=== PATIENT | female | born 1990 | race Caucasian/White ===

== ENCOUNTER → 2019-07-17 | Outpatient (CLI) | payer OTHER, SELFPAY ==
[2019-07-17 13:23] VITALS: BMI 23.1
[2019-07-21 17:41] LABS: HPV Reflexed? NOT INDICATED
== END | disposition home or self-care (01) ==
LOC: LABSPEC 16:30
PROVIDERS: PCP Family Medicine; Referring Provider Nurse Practitioner Women's Health; Visit Provider Nurse Practitioner Women's Health
DX: Z12.4 Encounter for screening for malignant neoplasm of cervix (principal)
CPT/HCPCS: 88175; G0145

== ENCOUNTER → 2020-05-12 | Outpatient (CLI) | payer OTHER, SELFPAY ==
[2020-05-12 10:26] VITALS: BMI 21.2
[2020-05-12 14:20] LABS: Amphetamine Urine VISTA NEGATIVE (<1000 ng/mL); Barbiturate Urine VISTA NEGATIVE (< 200 ng/mL); Benzodiazepine Urine VISTA NEGATIVE (< 200 ng/mL); Cocaine Urine VISTA NEGATIVE (< 300 ng/mL); Ecstacy Urine VISTA NEGATIVE (< 500 ng/mL); Methadone Urine VISTA NEGATIVE (< 300 ng/mL); PCP Urine VISTA NEGATIVE (< 25 ng/mL); THC Urine VISTA NEGATIVE (< 50 ng/mL); Vista UDS pH Range 6
[2020-05-14 03:06] LABS: Chlamydia By Nucleic Acid AMP Negative (Negative)
[2020-05-14 13:04] LABS: Gonococcus By Nucleic Acid AMP Negative (Negative)
== END | disposition home or self-care (01) ==
LOC: LABSPEC 13:14
PROVIDERS: Visit Provider Obstetrics & Gynecology
DX: Z34.90 Encounter for supervision of normal pregnancy, unspecified, unspecified trimester (principal)
CPT/HCPCS: 80307; 87086; 87088; 87491; 87591

== ENCOUNTER → 2020-05-28 12:12 | Outpatient (CLI) | payer OTHER, SELFPAY ==
[2020-05-12 10:26] VITALS: BMI 21.2
[2020-05-28 12:44] LABS: Absolute Lymphocyte Count 3.39 X10^3/uL (0.83-4.51); Absolute Neutrophil Count 5.7 X10^3/uL (2.0-7.7); Basophil# 0.02 X10^3/uL; Basophil% 0.2 % (0-1); Eosinophil# 0.08 X10^3/uL; Eosinophils% 0.8 % (0-5); Hematocrit 34.4 % (37-47); Hemoglobin 11.4 g/dL (12.0-15.0); Lymphocyte # 3.39 X10^3/ul (4.0); Lymphocyte % 34.9 % (19-41); Mean Corp Hgb Conc 33.1 g/dL (32-36); Mean Corpuscular Hgb 27.9 pg (27.0-32.0); Mean Corpuscular Volume 84.1 fL (81-99); Mean Platelet Vol. 9.1 fl (6.2-12.0); Monocyte# 0.55 X10^3/uL; Monocyte% 5.7 % (0-10); NRBC Flagged by Analyzer 0 % (0-5); Neutrophil # 5.65 X10^3/uL (2.7-7.7); Neutrophil % 58.2 % (47-70); Platelet Count 374 K/mm3 (150-450); RBC Distribution Width CV 13.4 % (11.6-14.6); RBC Distribution Width SD 41.1 fl (35.1-43.9); Red Blood Count 4.09 M/mm3 (4.2-5.4); White Blood Count 9.7 K/mm3 (4.4-11.0)
[2020-05-28 13:23] LABS: NATERA MAILED SPECIMEN
[2020-05-28 14:02] LABS: HIV - WCH Non-Reactive (Nonreactive); Hepatitis B Surface Antigen Non-Reactive (Nonreactive); Hepatitis C Antibody Non-Reactive (Nonreactive); Rubella IgG Equiv (Nonreactive)
[2020-05-29 02:34] LABS: Rapid Plasmin Reagin (RPR) NONREACTIVE (NONREACTIVE)
== END ==
PROVIDERS: PCP Family Medicine; Referring Provider Obstetrics & Gynecology; Visit Provider Obstetrics & Gynecology
DX: Z34.81 Encounter for supervision of other normal pregnancy, first trimester (principal)
CPT/HCPCS: 36415; 85025; 86592; 86703; 86762; 86803; 86850; 86900; 86901; 87340

== ENCOUNTER → 2020-07-07 | Outpatient (CLI) | payer OTHER, SELFPAY ==
[2020-07-07 10:43] VITALS: BMI 22.4
== END | disposition home or self-care (01) ==
LOC: LABSPEC 13:23
PROVIDERS: PCP Family Medicine; Visit Provider Nurse Practitioner Women's Health
DX: R30.0 Dysuria (principal)
CPT/HCPCS: 87086; 87088

== ENCOUNTER → 2020-08-22 | Outpatient (CLI) | payer OTHER, SELFPAY ==
[2020-08-22 15:30] VITALS: BMI 24.2
== END | disposition home or self-care (01) ==
LOC: LABSPEC 16:15
PROVIDERS: PCP Family Medicine; Referring Provider Obstetrics & Gynecology; Visit Provider Obstetrics & Gynecology
DX: R30.9 Painful micturition, unspecified (principal)
CPT/HCPCS: 87086; 87088

== ENCOUNTER → 2020-09-05 14:01 | Outpatient (CLI) | payer OTHER, SELFPAY ==
[2020-08-22 15:30] VITALS: BMI 24.2
[2020-09-05 14:33] LABS: Absolute Neutrophil Count 6.7 X10^3/uL (2.0-7.7); Basophil# 0.03 X10^3/uL; Basophil% 0.3 % (0-1); Eosinophil# 0.03 X10^3/uL; Eosinophils% 0.3 % (0-5); Hematocrit 25.7 % (37-47); Hemoglobin 8.3 g/dL (12.0-15.0); Lymphocyte % 28.3 % (19-41); Mean Corp Hgb Conc 32.3 g/dL (32-36); Mean Corpuscular Hgb 27.4 pg (27.0-32.0); Mean Corpuscular Volume 84.8 fL (81-99); Mean Platelet Vol. 9.3 fl (6.2-12.0); Monocyte# 0.56 X10^3/uL; Monocyte% 5.5 % (0-10); NRBC Flagged by Analyzer 0 % (0-5); Neutrophil # 6.68 X10^3/uL (2.7-7.7); Neutrophil % 65.3 % (47-70); Platelet Count 311 K/mm3 (150-450); RBC Distribution Width CV 12.8 % (11.6-14.6); RBC Distribution Width SD 39.1 fl (35.1-43.9); Red Blood Count 3.03 M/mm3 (4.2-5.4); White Blood Count 10.2 K/mm3 (4.4-11.0)
[2020-09-05 14:41] LABS: Glucose Challenge Gest 1H 50g 135 mg/dL (70-140)
== END ==
PROVIDERS: PCP Family Medicine; Referring Provider Obstetrics & Gynecology; Visit Provider Obstetrics & Gynecology
DX: Z34.90 Encounter for supervision of normal pregnancy, unspecified, unspecified trimester (principal)
CPT/HCPCS: 36415; 82950; 85025

== ENCOUNTER → 2020-10-03 15:20 | Outpatient (CLI) | payer OTHER, SELFPAY ==
[2020-09-05 15:00] VITALS: BMI 24.5
[2020-10-03 17:18] LABS: Absolute Lymphocyte Count 2.93 X10^3/uL (0.83-4.51); Absolute Neutrophil Count 7.4 X10^3/uL (2.0-7.7); Basophil# 0.03 X10^3/uL; Basophil% 0.3 % (0-1); Eosinophil# 0.03 X10^3/uL; Eosinophils% 0.3 % (0-5); Hematocrit 33.1 % (37-47); Hemoglobin 10.2 g/dL (12.0-15.0); Lymphocyte # 2.93 X10^3/ul (0.83-4.51); Lymphocyte % 26.7 % (19-41); Mean Corp Hgb Conc 30.8 g/dL (32-36); Mean Corpuscular Hgb 27.9 pg (27.0-32.0); Mean Corpuscular Volume 90.7 fL (81-99); Mean Platelet Vol. 10.2 fl (6.2-12.0); Monocyte% 5.5 % (0-10); NRBC Flagged by Analyzer 0 % (0-5); Neutrophil # 7.36 X10^3/uL (2.7-7.7); Neutrophil % 66.8 % (47-70); Platelet Count 296 K/mm3 (150-450); RBC Distribution Width CV 18.1 % (11.6-14.6); RBC Distribution Width SD 59.3 fl (35.1-43.9); Red Blood Count 3.65 M/mm3 (4.2-5.4)
== END ==
PROVIDERS: PCP Family Medicine; Referring Provider Obstetrics & Gynecology; Visit Provider Obstetrics & Gynecology
DX: Z78.9 Other specified health status (principal)
CPT/HCPCS: 36415; 85025

== ENCOUNTER → 2020-11-21 15:21 | Outpatient (CLI) | payer OTHER, SELFPAY ==
[2020-11-21 14:34] VITALS: BMI 25.1
[2020-11-21 17:26] LABS: Absolute Lymphocyte Count 2.94 X10^3/uL (0.83-4.51); Absolute Neutrophil Count 5.5 X10^3/uL (2.0-7.7); Basophil# 0.02 X10^3/uL; Basophil% 0.2 % (0-1); Eosinophil# 0.02 X10^3/uL; Eosinophils% 0.2 % (0-5); Hematocrit 38.6 % (37-47); Hemoglobin 12.7 g/dL (12.0-15.0); Lymphocyte # 2.94 X10^3/ul (0.83-4.51); Lymphocyte % 32.2 % (19-41); Mean Corp Hgb Conc 32.9 g/dL (32-36); Mean Corpuscular Hgb 29.9 pg (27.0-32.0); Mean Corpuscular Volume 90.8 fL (81-99); Mean Platelet Vol. 11.4 fl (6.2-12.0); Monocyte# 0.56 X10^3/uL; Monocyte% 6.1 % (0-10); NRBC Flagged by Analyzer 0 % (0-5); Neutrophil # 5.54 X10^3/uL (2.7-7.7); Neutrophil % 60.9 % (47-70); Platelet Count 250 K/mm3 (150-450); RBC Distribution Width CV 15.5 % (11.6-14.6); RBC Distribution Width SD 52.1 fl (35.1-43.9); Red Blood Count 4.25 M/mm3 (4.2-5.4); White Blood Count 9.1 K/mm3 (4.4-11.0)
== END ==
PROVIDERS: PCP Family Medicine; Referring Provider Obstetrics & Gynecology; Visit Provider Obstetrics & Gynecology
DX: O99.013 Anemia complicating pregnancy, third trimester (principal); Z3A.33 33 weeks gestation of pregnancy
CPT/HCPCS: 36415; 85025; 87081

== ENCOUNTER → 2020-12-08 13:25 | Outpatient (CLI) | payer OTHER, SELFPAY ==
[2020-12-05 12:12] VITALS: BMI 25.1
--- NOTE | 2020-12-08 13:26 | US_ITS ---
STUDY: SECOND AND THIRD TRIMESTER OBSTETRICAL ULTRASOUND - LIMITED REASON FOR EXAM: Female, 30 years old routine survey LMP: Unknown. PRIOR ULTRASOUND: None. TECHNIQUE: Transabdominal TECHNICAL QUALITY: Adequate. FINDINGS: There is a single intrauterine fetus. The fetus is in a cephalic presentation. There is demonstrated cardiac activity with a heart rate of 161 bpm. There is a normal amniotic fluid volume. The largest amniotic fluid pocket measures 5.05 cm. The amniotic fluid index (MAC) is 10.57 cm. The placenta is fundal and left lateral There are Grade 3 placental changes. The cervix was not measured BIOMETRY: BPD: 9.45 cm: 38 weeks, 4 days HC: 34.51 cm: 40 weeks, 0 days AC: 34.78 cm: 38 weeks, 5 days FL: 7.36 cm: 37 weeks, 5 days age by current US: 38 weeks, 6 days. THEA by current US: 12/16/2020. Estimated weight: 3533 grams, +/- 516 grams, 67 percentile. Incidental note is made of bilateral hydroceles US/OB Limited With Biometrics IMPRESSION: Single live intrauterine at 38 weeks, 6 days by current ultrasound THEA of 12/16/2020. Heart rate of 161 bpm. Bilateral hydroceles noted Electronically Signed: Howie Walker MD at 10:58 EDT , Service support ,
== END ==
PROVIDERS: Referring Provider Obstetrics & Gynecology; Visit Provider Obstetrics & Gynecology
DX: O36.5930 Maternal care for other known or suspected poor fetal growth, third trimester, not applicable or unspecified (principal); Z3A.37 37 weeks gestation of pregnancy
CPT/HCPCS: 76816

== ENCOUNTER 2020-12-12 13:40 | Outpatient (CLI) | payer OTHER, SELFPAY ==
[2020-12-12] VITALS (8 sets, daily range): BP systolic 108–122; BP diastolic 68–74; PULSE 77–90; TEMP 37.1; BMI 25.1; BMI 26.9
[2020-12-12 14:16] LABS: Hematocrit 36.4 % (37-47); Hemoglobin 12.8 g/dL (12.0-15.0); Mean Corp Hgb Conc 35.2 g/dL (32-36); Mean Corpuscular Hgb 30.8 pg (27.0-32.0); Mean Corpuscular Volume 87.5 fL (81-99); Mean Platelet Vol. 11.5 fl (6.2-12.0); Platelet Count 230 K/mm3 (150-450); RBC Distribution Width CV 14.2 % (11.6-14.6); Red Blood Count 4.16 M/mm3 (4.2-5.4); White Blood Count 9.9 K/mm3 (4.4-11.0)
[2020-12-12 14:23] LABS: Prothrombin Time (Protime)PT. 12.2 SECONDS (11.7-14.9)
[2020-12-12 14:40] LABS: AST(SGOT) 31 U/L (15-37); Alanine Aminotransfer ALT/SGPT 24 U/L (13-56); Creatinine, Serum 0.58 mg/dL (0.55-1.02); EST Glomerular Filtration Rate 130 mL/min (>60); Est Glom Filt Rate - Afr Amer 158 mL/min (>60); Estimated Creatinine Clearance 114.21 ml/min; Uric Acid 5.8 mg/dL (2.6-6.0)
[2020-12-12 15:36] LABS: Protein, Urine (Random) < 6.0 mg/dL (<11.9); Protein:Creat Ratio 155 mg/g CRE (0-200)
--- NOTE | 2020-12-12 16:47 | OB.TRI.PN ---
Progress Notes Date of Service: 12/12/20 Progress Note: Patient presents for triage evaluation secondary to elevated BP in office. Blood pressures normal in triage. PreE labs negative. FHT: Moderate variability reactive no decelerations category I tracing [place]: Irregular Contractions Assessment and plan: Reactive NST, reassuring maternal and status patient discharged to home to follow-up at next scheduled visit. See problem list details for additional plan information. Laboratory Studies: Laboratory Tests 12/12/20 12/12/20 12/12/20 Range/Units 15:00 13:55 13:55 WBC (4.4-11.0) K/mm3 RBC (4.2-5.4) M/mm3 Hgb (12.0-15.0) g/dL Hct (37-47) % MCV (81-99) fL MCH (27.0-32.0) pg MCHC (32-36) g/dL RDW Std Deviation (35.1-43.9) fl RDW Coeff of Mo (11.6-14.6) % Plt Count (150-450) K/mm3 MPV (6.2-12.0) fl PT 12.2 (11.7-14.9) SECONDS INR 1.0 APTT 24.0 L (24.1-36.2) Seconds Creatinine 0.58 (0.55-1.02) mg/dL Estim Creat Clear Calc 114.21 ml/min Est GFR (MDRD) Af Amer 158 (>60) mL/min Est GFR (MDRD) Non-Af 130 (>60) mL/min Uric Acid 5.8 (2.6-6.0) mg/dL AST 31 (15-37) U/L ALT 24 (13-56) U/L U Random Total Protein < 6.0 (<11.9) mg/dL Urine Creatinine 35.50 (NO RANGE EST.) mg/dL Protein/Creatinin Ratio 155 (0-200) mg/g CRE 12/12/20 Range/Units 13:55 WBC 9.9 (4.4-11.0) K/mm3 RBC 4.16 L (4.2-5.4) M/mm3 Hgb 12.8 (12.0-15.0) g/dL Hct 36.4 L (37-47) % MCV 87.5 (81-99) fL MCH 30.8 (27.0-32.0) pg MCHC 35.2 (32-36) g/dL RDW Std Deviation 45.0 H (35.1-43.9) fl RDW Coeff of Mo 14.2 (11.6-14.6) % Plt Count 230 (150-450) K/mm3 MPV 11.5 (6.2-12.0) fl PT (11.7-14.9) SECONDS INR APTT (24.1-36.2) Seconds Creatinine (0.55-1.02) mg/dL Estim Creat Clear Calc ml/min Est GFR (MDRD) Af Amer (>60) mL/min Est GFR (MDRD) Non-Af (>60) mL/min Uric Acid (2.6-6.0) mg/dL AST (15-37) U/L ALT (13-56) U/L U Random Total Protein (<11.9) mg/dL Urine Creatinine (NO RANGE EST.) mg/dL Protein/Creatinin Ratio (0-200) mg/g CRE
== END 2020-12-12 16:00 | disposition home or self-care (01) ==
LOC: WPOUT 13:44 → WP 13:45
PROVIDERS: Referring Provider Obstetrics & Gynecology; Visit Provider Obstetrics & Gynecology
DX: Z34.90 Encounter for supervision of normal pregnancy, unspecified, unspecified trimester (principal)
CPT/HCPCS: 36415; 59025; 59050; 82565; 82570; 84156; 84450; 84460; 84550; 85027; 85610; 85730; 99218; G0378

== ENCOUNTER 2020-12-14 08:35 | Inpatient (IN) | payer OTHER, SELFPAY ==
[2020-11-28 13:58] VITALS: BMI 25.1
[2020-12-12 13:54] VITALS: BMI 26.9
[2020-12-14] VITALS (37 sets, daily range): BP systolic 97–142; BP diastolic 57–94; PULSE 76–111; RESP 18; TEMP 36.7–37.1; O2SAT 97–100; BMI 26.6
[2020-12-14] MEDS: 0.9% Saline Lock 10 ML Syringe IV ×2 (07:29→07:30)
[2020-12-14 07:37] LABS: Absolute Lymphocyte Count 2.77 X10^3/uL (0.83-4.51); Absolute Neutrophil Count 4.9 X10^3/uL (2.0-7.7); Basophil# 0.02 X10^3/uL; Basophil% 0.2 % (0-1); Eosinophil# 0.02 X10^3/uL; Eosinophils% 0.2 % (0-5); Hematocrit 35.2 % (37-47); Hemoglobin 12.1 g/dL (12.0-15.0); Lymphocyte # 2.77 X10^3/ul (0.83-4.51); Mean Corp Hgb Conc 34.4 g/dL (32-36); Mean Corpuscular Hgb 30.3 pg (27.0-32.0); Mean Corpuscular Volume 88.2 fL (81-99); Mean Platelet Vol. 11.5 fl (6.2-12.0); Monocyte# 0.62 X10^3/uL; Monocyte% 7.4 % (0-10); NRBC Flagged by Analyzer 0 % (0-5); Neutrophil # 4.94 X10^3/uL (2.7-7.7); Neutrophil % 58.8 % (47-70); Platelet Count 192 K/mm3 (150-450); RBC Distribution Width CV 13.8 % (11.6-14.6); RBC Distribution Width SD 44.4 fl (35.1-43.9); Red Blood Count 3.99 M/mm3 (4.2-5.4); White Blood Count 8.4 K/mm3 (4.4-11.0)
[2020-12-14 07:46] LABS: International Normalized Ratio 0.9; Partial Thromboplast Time 22.7 Seconds (24.1-36.2); Prothrombin Time (Protime)PT. 11.8 SECONDS (11.7-14.9)
[2020-12-14 07:47] LABS: Fibrinogen 585 mg/dl (203-444)
[2020-12-14] MEDS: Lactated Ringers 1,000 ML 999 ML IV (08:15)
[2020-12-14] MEDS: Lactated Ringers 1,000 ML 50 ML IV (09:36)
--- NOTE | 2020-12-14 11:36 | HP.PCM.OB_ITS ---
HPI - General General Date of Admission: 12/14/20 HPI Narrative NAHUN HAGAN, is a 30 F at 39/3 who presents in active labor Maternal Data Information THEA Calculator Estimated Delivery Date Method Current WG Current Estimate 12/18/20 LMP (Certain) 39w 3d PFSH PFS Medical History (Updated 12/14/20 @ 11:[address] Ni Allen MD) Colitis Home Medications multivitamin no.47-iron fum 27 mg-folate no.1 1 mg-dha 300 mg capsule 1 cap PO DAILY 05/07/20 [History Last Taken 12/13/20] ferrous sulfate 325 mg (65 mg iron) tablet 325 mg PO BID #60 tablet 09/05/20 [Rx Last Taken 12/13/20] Allergy/AdvReac Type Severity Reaction Status Date / Time No Known Allergies Allergy Verified 12/14/20 06:32 Family History Father Heart disease Mother Heart disease Surgical History Hernia Social History number of children: 0 current occupational status: employed current occupation: [employer] Smoking Status: Never smoker alcohol intake: current alcohol intake frequency: holidays/special occasions only substance use type: does not use caffeine: Yes what type of physical activity do you participate in: aerobics and weight training frequency: 5-6 times per week seatbelt use: always do you feel safe at home: Yes additional social history: - [facility] History 1 Elective abortions Hx Para 0 Spontaneous abortions Hx # Term Pregnancies Ectopic pregnancies Hx # Pregnancies Multiple births # of living children Visit Details Expected Delivery Route/Plan Labor Preferences- CB/BF classes: CB classes 11/15 labor support person: JANNETTE labor intervention preferences: open to standard interventions. may be interested in tub in labor pain management options preferred: epidural cut cord/dad catch: Cord - squeamish! : yes PP control planned: OCPs discussed possible routes of delivery and associated risks: discussed possible delivery modalities and possible indications for each including R/B/A of , VAVD, FAVD, and CS. questions answered. special requests: Plans flu vaccine: declined tdap vaccine: given rhogam: na LARC form signed: declined movement and labor precautions reviewed. Problem list reviewed and updated with the most current plan of care details and appropriate orders placed. Relevant counseling for the gestational age provided. Continue routine care and follow up unless otherwise noted in visit notes/problem list details OB Flowsheet Initial Weight: Not Recorded Date -?-?-?-?-?-?-?-?-?-?-?-?- EGA Weight BP Urine Prot -?-?-?-?-?-?-?-?-?-?-?-?- Glucose FHR FuHt Pres Dilation -?-?-?-?-?-?-?-?-?-?-?-?- Effaced St Visit Note 05/12/20 -?-?-?-?-?-?-?-?-?-?-?-?- 8w 4d 116 lb 118/72 -?-?-?-?-?-?-?-?-?-?-?-?- 180 -?-?-?-?-?-?-?-?-?-?-?-?- GP - CRL 21mm co nsistent with LMP. 06/09/20 -?-?-?-?--?-?-?-?-?-?-?-?- 12w 4d 117 lb 8 oz 108/64 Nega tive -?-?-?-?-?-?-?-?-?-?-?-?- Negative 157 -?-?-?-?-?-?-?-?-?-?-?-?- GP - no cramping or bleeding. Nausea improved. Having gender reveal on New Years. 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 GP - no cramping or bleeding . Nausea improved. Having gender reveal on New Years. 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 07/07/20 -?-?-?-?-?-?-?-?-?-?-?-?- 16w 4d 122 lb 6 oz 110/60 Nega tive -?-?-?-?-?-?-?-?-?-?-?-?- Negative 147 -?-?-?-?-?-?-?-?-?-?-?-?- MH-noting lower pelvic pressure with occa dysuria. No VB, LOF. No vaginal irritation. Urine culture pending. Declines AFP 08/08/20 -?-?-?-?-?-?-?-?-?-?-?-?- 21w 1d 128 lb 110/72 Negative -?-?-?-?-?-?-?-?-?-?-?-?- Negative 145 -?-?-?-?-?-?-?-?-?-?-?-?- SM- no vb lof di scussed previa diagnosis 09/05/20 -?-?-?-?-?-?-?-?-?-?-?-?- 25w 1d 134 lb 8 oz 110/60 Nega tive -?-?-?-?-?-?-?-?-?-?-?--?- Negative 145 25 -?-?-?-?-?-?-?-?-?-?-?-?- GP - no LOF, VB, DFM, ctx. Discussed anemia - will repeat CBC at next visit. Will consider venofer if still low. GCT 135 - discussed borderline but passed. 10/03/20 -?-?-?-?-?-?-?-?-?-?-?-?- 29w 1d 137 lb 4 oz 120/84 Nega tive -?-?-?-?-?-?-?-?-?-?-?-?- Negative 155 29 -?-?-?-?-?-?-?-?-?-?-?-?- GP - no LOF, VB, DFM, ctx. Repeat CBC pending. LARC form signed. Previa resolved - awaiting records. 10/17/20 -?-?-?-?-?-?-?-?-?-?-?--?- 31w 1d 138 lb 94/62 Negative -?-?-?-?-?-?-?-?-?-?-?-?- Negative 145 31 -?-?-?-?-?-?-?-?-?-?-?-?- GP - no LOF, VB, dFM, ctx. Hb increased significantly with iron. Previa resolved. CB classes next weekend. Baby shower is tomorrow - first grandchild on both sides. 10/31/20 -?-?-?-?-?-?-?-?-?-?-?-?- 33w 1d 142 lb 110/70 Negative -?-?-?-?-?-?-?-?-?-?-?-?- Negative 145 32 Cephalic -?-?-?-?-?-?-?-?-?-?-?-?- SM- no vb lof go od fm nor egular ctx doing well CB classes rescheduled 11/14/20 -?-?-?-?-?-?-?-?-?-?-?-?- 35w 1d 143 lb 120/62 Negative -?-?-?-?-?-?-?-?-?-?-?-?- Negative 150 35 Cephalic -?-?-?-?-?-?-?-?-?-?-?-?- GP - no LOF, VB, DFM, ctx. CB classes this weekend. 11/21/20 -?-?-?-?-?-?-?-?-?-?-?-?- 36w 1d 143 lb 102/80 Negative -?-?-?--?-?-?-?-?-?-?-?-?- Negative 150 36 Cephalic 2 -?-?-?-?-?-?-?-?-?-?-?-?- 60 -2 GP - no LO F, VB, DFM, ctx. GBS today. Discussed labor preferences and routes of delivery. 11/28/20 -?-?-?-?-?-?-?-?-?-?-?-?- 37w 1d 145 lb 116/86 Negative -?-?-?-?-?-?-?-?-?-?-?-?- Negative 160 36 Cephalic 2 -?-?-?-?-?-?-?-?--?-?-?-?- 60 -1 Sm- no vb lof good fm no reuglar ctx 12/05/20 -?-?-?-?-?-?-?-?-?-?-?-?- 38w 1d 145 lb 8 oz 116/70 Nega tive -?-?-?-?-?-?-?-?-?-?-?-?- Negative 155 35 Cephalic 2 -?-?-?-?-?-?-?-?-?-?-?-?- SM- no vb lof go od fm no regular ctx SM- no vb lof good fm no reg ular ctx needs growth US, bedside MAC WNL 12/12/20 -?-?-?-?-?-?-?-?-?-?-?-?- 39w 1d 147 lb 8 oz 124/96 Nega tive -?-?-?-?-?-?-?-?-?-?-?-?- Negative 155 38 Cephalic 3 -?-?-?-?-?-?-?-?--?-?-?-?- 70 -1 GP - no LO F, VB, dFM, regular ctx. Initial BP elevated GP - no LOF, VB, dFM, regula r ctx. BPs elevated - sent to triage for monitoring. 12/14/20 -?-?-?--?-?-?-?-?-?-?-?-?- 39w 3d 146 lb 142/92 119/79 107/63 117/67 -?-?-?-?-?-?-?-?-?-?-?-?- -?-?-?-?-?-?-?-?-?-?-?-?- ROS Eyes Eyes: Reports systems reviewed and no addt'l complaints, except as documented ENT HEENT: Reports systems reviewed and no addt'l complaints, except as documented Cardiovascular Cardiovascular: Reports systems reviewed and no addt'l complaints, except as documented Respiratory/Chest Respiratory/Chest: Reports systems reviewed and no addt'l complaints, except as documented Gastrointestinal Gastrointestinal: Reports systems reviewed and no addt'l complaints, except as documented Genitourinary Genitourinary: Reports systems reviewed and no addt'l complaints, except as documented Musculoskeletal Musculoskeletal: Reports systems reviewed and no addt'l complaints, except as documented Integumentary Integumentary: Reports systems reviewed and no addt'l complaints, except as documented Neurologic Neurologic: Reports systems reviewed and no addt'l complaints, except as documented Psychiatric Psychiatric: Reports systems reviewed and no addt'l complaints, except as documented Endocrine Endocrinology: Reports systems reviewed and no addt'l complaints, except as documented Hematologic/Lymphatic Hematologic/Lymphatic: Reports systems reviewed and no addt'l complaints, except as documented Allergic/Immunologic Allergic/Immunologic: Reports systems reviewed and no addt'l complaints, except as documented Vital Signs Vital Signs Vital Signs: 12/14/20 06:15 12/14/20 06:16 12/14/20 06:31 Pulse Rate 91 85 Blood Pressure 142/92 H 119/79 BP Systolic 142 119 BP Diastolic 92 79 Pulse Ox 99 12/14/20 09:38 12/14/20 11:24 Pulse Rate 85 80 Blood Pressure 107/63 117/67 BP Systolic 107 117 BP Diastolic 63 67 Pulse Ox Weight Weight: 146 lb Body Mass Index (BMI) 26.6 Physical Exam Const alert, oriented x3, no apparent distress, average body habitus, healthy appearing and well nourished HEENT normocephalic and moist oral mucous membranes Head and Scalp: atraumatic Eyes PERRL and EOMs intact bilaterally Neck full ROM Resp normal respiratory effort, no retractions and no use of accessory muscles Cardio regular rate and regular rhythm GI soft to palpation, non-tender and non-distended Extremity normal to inspection and full ROM Skin no rashes or lesions noted Neuro no focal motor deficits and no sensory deficits noted Psych mental status grossly normal, affect normal, speech normal and activity/motor behavior normal Labs Labs Labs: Blood Type O POSITIVE Antibody Screen NEGATIVE Hct 35.2 % (37-47) L Hgb 12.1 g/dL (12.0-15.0) Obstetrics US Rubella IgG Antibody Equiv (Nonreactive) Hep Bs Antigen Non-Reactive (Nonreactive) Neisseria gonorrhoeae DNA (JONNA) Negative (Negative) HIV 1&2 Antibody Non-Reactive (Nonreactive) Glucose 1 Hr 50 gm 135 mg/dL (70-140) Assessment & Plan (1) Active labor at term: PLAN: Patient presents IAL, plan expectant management for , pitocin/AROM PRN if needed. Pain management: plans epidural. GBS negative. Management of any complications: none I have reviewed the [facility] and made any clinically relevant updates. (2) Uterine size-date discrepancy, third trimester: COMMENT: Normal 12/09 (3) Not immune to rubella: COMMENT: Eqivocal. Recommend MMR . (4) Supervision of normal : QUALIFIERS: Normal : normal first Trimester: third trimester Qualified Code(s): Z34.03 - Encounter for supervision of normal first , third trimester COMMENT: PRR THEA 12/18/2020 patric Ly Spouse: CJ (5) : QUALIFIERS: Weeks of gestation: 39 weeks Qualified Code(s): Z3A.39 - 39 weeks gestation of COMMENT: low risk NIPT and nl carrier. afp declined. anatomy reviewed. neg. GBS (6) Colitis: COMMENT: Ulcerative colitis. Dx: 07/2016 patient self treats. Flair in 1st trimester. Not on meds outside of .
[2020-12-14] MEDS: fentaNYL-bupivacaine (epidural) 100 ML BAG EPIDURAL (12:19)
[2020-12-14] MEDS: Lactated Ringers 1,000 ML 200 ML IV (16:27)
[2020-12-14] MEDS: Oxytocin 30 units/NS 500 ml 30 UNITS/500 ML IV.SOLN 334 UNITS IV (17:45)
[2020-12-14] MEDS: Methylergonovine 0.2 MG/ML Ampul IM (18:05)
--- NOTE | 2020-12-14 18:09 | OP.PCM_ITS ---
Assessment & Plan (1) Active labor at term: (2) Uterine size-date discrepancy, third trimester: COMMENT: Normal 12/09 (3) Not immune to rubella: COMMENT: Eqivocal. Recommend MMR . (4) Supervision of normal : QUALIFIERS: Normal : normal first Trimester: third trimester Qualified Code(s): Z34.03 - Encounter for supervision of normal first , third trimester COMMENT: PRR THEA 12/18/2020 patric Ly Spouse: JANNETTE (5) : QUALIFIERS: Weeks of gestation: 39 weeks Qualified Code(s): Z3A.39 - 39 weeks gestation of COMMENT: low risk NIPT and nl carrier. afp declined. anatomy reviewed. neg. GBS (6) Colitis: COMMENT: Ulcerative colitis. Dx: 07/2016 patient self treats. Flair in 1st trimester. Not on meds outside of . (7) Spontaneous vaginal delivery: Maternal Data Information THEA Calculator Estimated Delivery Date Method Current WG Current Estimate 12/18/20 LMP (Certain) 39w 3d Vaginal Delivery Maternal Presentation Maternal Presentation: Active Labor Maternal Presentation: 30-year-old G1, P0 at 39 weeks gestation admitted in active labor. Patient augmented with artificial rupture of membranes. Type of Induction: Amniotomy Operative Information Date of Procedure: 12/14/20 Pre-Operative Diagnosis: Term , active labor Post-Operative Diagnosis: Same Surgery / Procedure Performed: Spontaneous Vaginal Delivery Type of Anesthesia: Epidural Drain: Alfred to straight drain Estimated Blood Loss: 300 Findings Description of Procedure: Patient began pushing and delivered the head in the WILLIS presentation. The head was delivered atraumatically and no nuchal cord was noted. The anterior and posterior shoulders delivered without complication followed by the rest of the and the infant was placed on the maternal abdomen. Delayed cord clamping was employed for approximately 60 seconds. Cord was clamped and cut and gentle traction was applied to the cord and the placenta delivered spontaneously immediately following it was noted to be intact with three-vessel cord. The perineum and vagina were inspected and a midline second- degree perineal laceration was noted and repaired in the standard fashion using 3-0 Vicryl rapide suture. EBL was 300 cc. Patient and infant tolerated delivery well. Presentation: Vertex and WILLIS Amniotic Membrane Rupture Type: Artificial Amniotic Fluid Description: Clear Placental Delivery Description: Spontaneous Placenta Disposition: [facility] Cord Vessel Description: 3 Vessels Cord Entanglement: None Infant A Gender: Male Delayed Cord Clamping: Yes Post Vaginal Delivery Medications Given After Delivery: IV Pitocin and IM Methergin Episiotomy Description: None Laceration: Midline, Perineal Extension/lac and 2nd degree Complication Complications: None Procedures Urinary/Genital [id number]: [id number] [facility]aginal Delivery [facility]
--- NOTE | 2020-12-14 18:15 | PCM.DC ---
Discharge Instructions Diet Discharge Diet: No restrictions Activity Discharge Activity: Return to Normal Activity, May Not Drive (while taking narcotic pain medications.) and May Shower May resume sexual activity in: 4-6 weeks Dressing / Incision Call your doctor if your incision/area has: Continuous Slow Oozing, Sudden Increased Bleeding, Increased Pain/ Swelling, Increased Redness and Foul Smelling Discharge Follow Up Care When: Call to make an appointment with your doctor in 6 weeks. If you had elevated Blood Pressure or 4th degree laceration you will need to be seen in 2 weeks. Test Results: Test results from this visit will be discussed in further detail at your follow-up appointment, if applicable. Discharge Plan Admission Admit Date/Time: 12/14/20 08:35 Attending Provider: Ni Allen Primary Care Provider: Care Physician,No Primary Instructions Patient Instructions: After a Vaginal Discharge Orders/Prescriptions Prescriptions: New ibuprofen 800 mg tablet 800 mg PO Q8H PRN (Reason: pain) Qty: 30 RF: 1 Continued PNV-DHA 27 mg iron-1 mg -300 mg capsule 1 cap PO DAILY RF: 0 ferrous sulfate 325 mg (65 mg iron) tablet 325 mg PO BID Qty: 60 RF: 5 Referrals / Follow Up: Care Physician,No Primary [Primary Care Provider] -
[2020-12-14] MEDS: Ibuprofen 600 MG Tablet PO (21:23)
[2020-12-14] MEDS: Acetaminophen 500 MG Tablet 1000 MG PO (23:53)
[2020-12-15 04:00] VITALS: BP 115/78; PULSE 78; RESP 18; TEMP 36.7
[2020-12-15] MEDS: Ibuprofen 600 MG Tablet PO ×2 (04:36→12:05)
[2020-12-15 07:15] VITALS: TEMP 36.4
[2020-12-15] MEDS: Benzocaine/Lanolin/Aloe Vera 1 SPRAY EACH TOPICAL (07:48)
[2020-12-15] MEDS: Acetaminophen 500 MG Tablet 1000 MG PO (07:49)
[2020-12-15] MEDS: Senna/Docusate Sodium 1 Tablet PO (07:50)
[2020-12-15] MEDS: Ferrous Sulfate 325 MG Tablet PO (07:50)
--- NOTE | 2020-12-15 07:56 | PCM.PN.OB ---
Subjective Subjective Patient doing well without complaints. Tolerating PO. Ambulating and voiding without difficulty. Breast feeding well. Denies chest pain, shortness of breath, calf pain/swelling, fevers, chills, lightheadedness. Objective Data Objective Data Vital Signs: Vital Signs Temp Pulse Resp BP Pulse Ox 97.6 F L 78 18 115/78 97 12/15/20 07:15 12/15/20 04:00 12/15/20 04:00 12/15/20 04:00 12/14/20 19:43 Oxygen Delivery Method Room Air Weight: 146 lb Body Mass Index (BMI) 26.6 Intake & Output: Intake and Output for Last 24 Hours 12/13/20 12/14/20 12/15/20 23:59 23:59 23:59 Intake Total 3600.0 / 3600.0 Output Total 1800 / 1800 Balance 1800.0 / 1800.0 Lab / Micro Data Result Diagrams: 12/14/20 07:20 Labs: Laboratory Results - last 24 hr 12/14/20 07:20 Blood Type O POSITIVE Antibody Screen NEGATIVE Micro: Microbiology 12/14/20 09:20 Mucosa - Nose SARS-CoV-2 Antigen (Rapid) - Final ROS Constitutional Constitutional: Denies fever(s) Cardiovascular Cardiovascular: Denies chest pain, dyspnea or lightheadedness Gastrointestinal Gastrointestinal: Reports abdominal pain; Denies constipation or diarrhea Neurologic Neurologic: Denies dizziness or headache(s) Physical Exam Const alert, oriented x3, no apparent distress, average body habitus, healthy appearing and well nourished HEENT normocephalic Head and Scalp: atraumatic Eyes PERRL and EOMs intact bilaterally Neck full ROM Lymph Lymphatic: no lymphadenopathy noted Resp normal respiratory effort, no retractions and no use of accessory muscles Cardio regular rate GI soft to palpation, non-tender and non-distended Palpation: other Other Details: fundus firm Extremity normal to inspection and no clubbing, cyanosis or edema Skin no rashes or lesions noted Neuro no focal motor deficits and no sensory deficits noted Psych mental status grossly normal, affect normal and speech normal Assessment & Plan (1) Spontaneous vaginal delivery: PLAN: s/p PPD # 1 1. routine post delivery care 2. breast feeding- support given 3. rh positive 4. rubella non-immune
[2020-12-15 09:40] VITALS: BP 117/74; PULSE 88; RESP 18; TEMP 36.6
[2020-12-15 12:40] VITALS: BP 95/65; PULSE 89; RESP 18; TEMP 36.9
[2020-12-15 16:30] VITALS: BP 128/78; PULSE 109; RESP 18; TEMP 36.8
== END 2020-12-15 19:07 | disposition home or self-care (01) | DRG 807 ==
LOC: WPOUT 08:43 → WP 08:43
PROVIDERS: Admitting Provider Obstetrics & Gynecology; Visit Provider Obstetrics & Gynecology
DX: O70.1 Second degree perineal laceration during delivery (principal); Z37.0 Single live birth; Z3A.39 39 weeks gestation of pregnancy
CPT/HCPCS: 59025; 59050; 85025; 85384; 85610; 85730; 86850; 86900; 86901; 87426; 99218; J7120; A4216; G0378

== ENCOUNTER → 2022-02-16 | Outpatient (CLI) | payer OTHER, SELFPAY ==
[2022-02-16 15:37] LABS: Absolute Lymphocyte Count 2.51 X10^3/uL (0.83-4.51); Absolute Neutrophil Count 3.1 X10^3/uL (2.0-7.7); Basophil# 0.01 X10^3/uL; Basophil% 0.2 % (0-1); Eosinophil# 0.06 X10^3/uL; Hematocrit 34.8 % (37-47); Hemoglobin 11.7 g/dL (12.0-15.0); Lymphocyte # 2.51 X10^3/ul (0.83-4.51); Lymphocyte % 40.5 % (19-41); Mean Corp Hgb Conc 33.6 g/dL (32-36); Mean Corpuscular Hgb 30.4 pg (27.0-32.0); Mean Corpuscular Volume 90.4 fL (81-99); Mean Platelet Vol. 9.5 fl (6.2-12.0); Monocyte% 8.1 % (0-10); NRBC Flagged by Analyzer 0 % (0-5); Platelet Count 264 K/mm3 (150-450); RBC Distribution Width CV 12.1 % (11.6-14.6); RBC Distribution Width SD 39.7 fl (35.1-43.9); Red Blood Count 3.85 M/mm3 (4.2-5.4); White Blood Count 6.2 K/mm3 (4.4-11.0)
[2022-02-16 16:07] LABS: T4 Free Direct 0.87 ng/dL (0.76-1.46); Thyroid Stim Hormone (TSH) 1.83 uIU/mL (0.358-3.74)
[2022-02-18 17:32] LABS: Thyroid Peroxidase AB 12 IU/mL (0-34)
== END | disposition home or self-care (01) ==
LOC: PAVLAB 15:07
PROVIDERS: Referring Provider Nurse Practitioner Women's Health; Visit Provider Nurse Practitioner Women's Health
DX: R53.83 Other fatigue (principal); Z13.29 Encounter for screening for other suspected endocrine disorder
CPT/HCPCS: 36415; 84439; 84443; 85025; 86376

== ENCOUNTER → 2022-06-09 | Outpatient (CLI) | payer OTHER, SELFPAY ==
[2022-06-09 08:28] LABS: Absolute Lymphocyte Count 2.38 X10^3/uL (0.83-4.51); Absolute Neutrophil Count 2.1 X10^3/uL (2.0-7.7); Basophil# 0.02 X10^3/uL; Basophil% 0.4 % (0-1); Eosinophil# 0.05 X10^3/uL; Hematocrit 36.9 % (37-47); Hemoglobin 12.3 g/dL (12.0-15.0); Lymphocyte # 2.38 X10^3/ul (0.83-4.51); Mean Corp Hgb Conc 33.3 g/dL (32-36); Mean Corpuscular Hgb 30.2 pg (27.0-32.0); Mean Corpuscular Volume 90.7 fL (81-99); Mean Platelet Vol. 9.3 fl (6.2-12.0); Monocyte# 0.46 X10^3/uL; Monocyte% 9.1 % (0-10); NRBC Flagged by Analyzer 0 % (0-5); Neutrophil # 2.14 X10^3/uL (2.7-7.7); Neutrophil % 42.3 % (47-70); Platelet Count 322 K/mm3 (150-450); RBC Distribution Width SD 39.7 fl (35.1-43.9); Red Blood Count 4.07 M/mm3 (4.2-5.4); White Blood Count 5.1 K/mm3 (4.4-11.0)
[2022-06-09 09:15] LABS: ALB/GLOB Ratio 1.1 RATIO (0.9-2.4); AST(SGOT) 36 U/L (15-37); Alanine Aminotransfer ALT/SGPT 70 U/L (13-56); Albumin, Serum 3.9 g/dL (3.2-5.0); Alkaline Phosphatase 96 U/L (45-117); Anion Gap 6 (5-15); BUN 11 mg/dL (7-18); BUN/Creat Ratio 16.9 RATIO (10-20); CRP < 2.90 mg/L (0.0-3.0); Calcium,Total 8.7 mg/dL (8.5-10.1); Chloride 106 mmol/L (98-107); Creatinine, Serum 0.65 mg/dL (0.55-1.02); EST Glomerular Filtration Rate 113 mL/min (>60); Est Glom Filt Rate - Afr Amer 137 mL/min (>60); Globulin 3.6 g/dL (2.2-4.2); Glucose 73 mg/dL (74-106); Potassium 3.8 mmol/L (3.5-5.1); Protein, Total 7.5 g/dL (6.4-8.2); Sodium Level 138 mmol/L (136-145)
== END | disposition home or self-care (01) ==
LOC: PAVLAB 08:10
DX: K62.5 Hemorrhage of anus and rectum (principal); K51.00 Ulcerative (chronic) pancolitis without complications; K60.0 Acute anal fissure
CPT/HCPCS: 36415; 80053; 85025; 86140

== ENCOUNTER → 2022-08-10 | Outpatient (CLI) | payer OTHER, SELFPAY ==
[2022-08-10 11:52] LABS: hCG Titer Quant., Serum 11 mIU/mL (1-3)
== END | disposition home or self-care (01) ==
LOC: PAVLAB 10:31
PROVIDERS: Referring Provider Obstetrics & Gynecology; Visit Provider Obstetrics & Gynecology
DX: N91.2 Amenorrhea, unspecified (principal)
CPT/HCPCS: 36415; 84702

== ENCOUNTER → 2022-08-12 | Outpatient (CLI) | payer OTHER, SELFPAY ==
[2022-08-12 11:42] LABS: hCG Titer Quant., Serum 4 mIU/mL (1-3)
== END | disposition home or self-care (01) ==
LOC: PAVLAB 10:42
PROVIDERS: Referring Provider Obstetrics & Gynecology; Visit Provider Obstetrics & Gynecology
DX: N91.2 Amenorrhea, unspecified (principal)
CPT/HCPCS: 36415; 84702

== ENCOUNTER → 2022-10-11 | Outpatient (CLI) | payer OTHER, SELFPAY ==
[2022-10-14 04:07] LABS: Chlamydia By Nucleic Acid AMP Negative (Negative); Gonococcus By Nucleic Acid AMP Negative (Negative)
[2022-10-18 20:07] LABS: HPV APTIMA, High Risk Negative (Negative)
[2022-10-18 21:15] LABS: HPV Reflexed? YES, CHARGE PATIENT
== END | disposition home or self-care (01) ==
PROVIDERS: Visit Provider Obstetrics & Gynecology
DX: O09.90 Supervision of high risk pregnancy, unspecified, unspecified trimester (principal)
CPT/HCPCS: 87086; 87491; 87591; 87624; 88175; G0145

== ENCOUNTER → 2022-10-29 | Outpatient (CLI) | payer OTHER, SELFPAY ==
[2022-10-29 09:29] LABS: Absolute Lymphocyte Count 2.25 X10^3/uL (0.83-4.51); Absolute Neutrophil Count 3.3 X10^3/uL (2.0-7.7); Basophil# 0.03 X10^3/uL; Basophil% 0.5 % (0-1); Eosinophil# 0.04 X10^3/uL; Eosinophils% 0.7 % (0-5); Hematocrit 36.6 % (37-47); Hemoglobin 12.6 g/dL (12.0-15.0); Lymphocyte # 2.25 X10^3/ul (0.83-4.51); Mean Corp Hgb Conc 34.4 g/dL (32-36); Mean Corpuscular Hgb 31.1 pg (27.0-32.0); Mean Corpuscular Volume 90.4 fL (81-99); Mean Platelet Vol. 9.8 fl (6.2-12.0); Monocyte# 0.41 X10^3/uL; Monocyte% 6.7 % (0-10); NRBC Flagged by Analyzer 0 % (0-5); Neutrophil # 3.34 X10^3/uL (2.7-7.7); Neutrophil % 54.9 % (47-70); Platelet Count 278 K/mm3 (150-450); RBC Distribution Width CV 12.2 % (11.6-14.6); Red Blood Count 4.05 M/mm3 (4.2-5.4); White Blood Count 6.1 K/mm3 (4.4-11.0)
[2022-10-29 10:00] LABS: NATERA MAILED SPECIMEN
[2022-10-29 10:17] LABS: Ferritin 20 ng/mL (8-252); Iron 127 ug/dL (50-170); Iron Binding Capacity,Total 403 ug/dL (250-450); PERCENT IRON SATURATION 31.5 % (15.0-55.0)
[2022-10-29 10:57] LABS: HIV - WCH Non-Reactive (Nonreactive); Hepatitis B Surface Antigen Non-Reactive (Nonreactive); Hepatitis C Antibody Non-Reactive (Nonreactive); Rubella IgG Reactive (Nonreactive); Syphilis Antibodies Non-reactive; Vitamin B12 828 pg/mL (211-911)
== END | disposition home or self-care (01) ==
LOC: PAVLAB 08:55
PROVIDERS: Referring Provider Obstetrics & Gynecology; Visit Provider Obstetrics & Gynecology
DX: O09.90 Supervision of high risk pregnancy, unspecified, unspecified trimester (principal); Z3A.00 Weeks of gestation of pregnancy not specified
CPT/HCPCS: 36415; 82607; 82728; 83540; 83550; 85025; 86703; 86762; 86780; 86803; 86850; 86900; 86901; 87340

== ENCOUNTER → 2023-02-11 | Outpatient (CLI) | payer OTHER, SELFPAY ==
[2023-02-11 13:35] LABS: Absolute Lymphocyte Count 1.92 X10^3/uL (0.83-4.51); Basophil# 0.02 X10^3/uL; Basophil% 0.2 % (0-1); Eosinophil# 0.03 X10^3/uL; Eosinophils% 0.4 % (0-5); Hematocrit 29.2 % (37-47); Hemoglobin 9.8 g/dL (12.0-15.0); Lymphocyte # 1.92 X10^3/ul (0.83-4.51); Lymphocyte % 22.7 % (19-41); Mean Corp Hgb Conc 33.6 g/dL (32-36); Mean Corpuscular Hgb 30.8 pg (27.0-32.0); Mean Corpuscular Volume 91.8 fL (81-99); Mean Platelet Vol. 9.2 fl (6.2-12.0); Monocyte# 0.43 X10^3/uL; Monocyte% 5.1 % (0-10); NRBC Flagged by Analyzer 0 % (0-5); Neutrophil # 6.04 X10^3/uL (2.7-7.7); Neutrophil % 71.2 % (47-70); Platelet Count 262 K/mm3 (150-450); RBC Distribution Width SD 40.7 fl (35.1-43.9); Red Blood Count 3.18 M/mm3 (4.2-5.4); White Blood Count 8.5 K/mm3 (4.4-11.0)
[2023-02-11 13:52] LABS: Glucose Challenge Gest 1H 50g 106 mg/dL (70-140)
[2023-02-11 14:26] LABS: HIV - WCH Non-Reactive (Nonreactive); Syphilis Antibodies Non-reactive
== END | disposition home or self-care (01) ==
LOC: LAB 12:55
PROVIDERS: Referring Provider Obstetrics & Gynecology; Visit Provider Obstetrics & Gynecology
DX: O09.90 Supervision of high risk pregnancy, unspecified, unspecified trimester (principal); Z3A.00 Weeks of gestation of pregnancy not specified
CPT/HCPCS: 36415; 82950; 85025; 86703; 86780

== ENCOUNTER → 2023-03-21 | Outpatient (CLI) | payer OTHER, SELFPAY ==
--- NOTE | 2023-03-21 08:26 | US_ITS ---
STUDY: SECOND AND THIRD TRIMESTER OBSTETRICAL ULTRASOUND - LIMITED REASON FOR EXAM: Female, 32 years old growth LMP: August 10, 2022. PRIOR ULTRASOUND: None. TECHNIQUE: Transabdominal TECHNICAL QUALITY: Adequate. FINDINGS: There is a single intrauterine fetus. The fetus is in a cephalic presentation. There is demonstrated cardiac activity with a heart rate of 136 bpm. There is a normal amniotic fluid volume. The largest amniotic fluid pocket measures 4.7 cm. The amniotic fluid index (MAC) is 14 cm. The placenta is anterior in location and is not low lying. There are Grade 1 placental changes. The cervix measures 4.7 cm in length. BIOMETRY: BPD: 8.49 cm: 34 weeks, 1 days HC: 31.05 cm: 34 weeks, 5 days AC: 29.05 cm: 33 weeks, 0 days FL: 6.04 cm: 31 weeks, 3 days Age by LMP: 31 weeks, 6 days. THEA by LMP: May 17, 2023. age by current US: 32 weeks, 4 days. THEA by current US: May 03, 2023. Estimated weight: 2062 grams, +/- 309 grams, 70.5 percentile. US/OB Limited With Biometrics IMPRESSION: Single live uterine gestation with a mean gestational age of 32 weeks and 4 days. Electronically Signed: Wiley Scott MD at 9:39 EDT ,
== END | disposition home or self-care (01) ==
LOC: US 08:26
PROVIDERS: Referring Provider Obstetrics & Gynecology; Visit Provider Obstetrics & Gynecology
DX: O98.513 Other viral diseases complicating pregnancy, third trimester (principal); U07.1 COVID-19; Z3A.00 Weeks of gestation of pregnancy not specified
CPT/HCPCS: 76816

== ENCOUNTER → 2023-04-20 | Outpatient (CLI) | payer OTHER, SELFPAY ==
--- NOTE | 2023-04-20 09:27 | US_ITS ---
STUDY: SECOND AND THIRD TRIMESTER OBSTETRICAL ULTRASOUND - LIMITED REASON FOR EXAM: Female, 33 years old growth LMP: August 10, 2022. PRIOR ULTRASOUND: Comparison is made with prior study March 21, 2023. TECHNIQUE: Transabdominal TECHNICAL QUALITY: Adequate. FINDINGS: There is a single intrauterine fetus. The fetus is in a cephalic presentation. There is demonstrated cardiac activity with a heart rate of 130 bpm. There is a normal amniotic fluid volume. The largest amniotic fluid pocket measures 4.0 cm. The amniotic fluid index (MAC) is 14.6 cm. The placenta is anterior in location and is not low lying. There are Grade 1 placental changes. The cervix measures 4.5 cm in length. BIOMETRY: BPD: 9.2 cm: 37 weeks, 2 days HC: 32.9 cm: 37 weeks, 3 days AC: 32.5 cm: 36 weeks, 3 days FL: 7.1 cm: 36 weeks, 1 days Age by LMP: 36 weeks, 1 days. THEA by LMP: May 17, 2023. age by prior US: 38 weeks, 0 days. THEA by prior US: May 03, 2023. age by current US: 37 weeks, 0 days. THEA by current US: May 11, 2023. Estimated weight: 2997 grams, +/- 450 grams, 66 percentile. US/OB Limited With Biometrics IMPRESSION: Single live uterine gestation with mean gestational age of 38 weeks. The measurements obtained today fall within the normal expected range. Electronically Signed: Wiley Scott MD at 15:00 EDT ,
[2023-04-20 13:50] LABS: Group B Strep DNA By PCR Negative (Negative); Internal Control PASS; Probe Check PASS; Specimen Processing Control PASS
== END | disposition home or self-care (01) ==
PROVIDERS: Registered Nurse; Referring Provider Obstetrics & Gynecology; Visit Provider Obstetrics & Gynecology
DX: Z34.90 Encounter for supervision of normal pregnancy, unspecified, unspecified trimester (principal); Z3A.00 Weeks of gestation of pregnancy not specified
CPT/HCPCS: 76816; 87081; 87653

== ENCOUNTER 2023-05-13 09:25 | Inpatient (IN) | payer OTHER, SELFPAY ==
[2023-05-13] VITALS (56 sets, daily range): BP systolic 99–127; BP diastolic 58–82; PULSE 78–113; RESP 16; TEMP 36.8–37.6; O2SAT 83–100; BMI 26.2
--- NOTE | 2023-05-13 09:13 | HP.PCM.OB_ITS ---
HPI - General HPI Narrative NAHUN HAGAN, is a 33 F who presents IAL regular ctx 4-5 cm dilated no vb lof admits good fm Maternal Data Information THEA Calculator Estimated Delivery Date Method Current WG Current Estimate 05/17/23 LMP (Certain) 39w 3d PFSH PFSH Medical History Colitis COVID-19 affecting in third trimester Fatigue Not immune to rubella Home Medications multivitamin no.47-iron fum 27 mg-folate no.1 1 mg-dha 300 mg capsule (PNV-DHA) 1 cap PO DAILY Check with primary doctor 05/07/20 [History Last Taken 12/13/20] prochlorperazine maleate 10 mg tablet (Compazine) 10 mg PO Q8H PRN nausea and vomiting #90 tabs 10/11/22 [Rx Last Taken Unknown] ondansetron HCl 4 mg tablet 4 mg PO ONCE #30 tabs 12/15/22 [Rx Last Taken Unknown] aspirin 81 mg tablet,delayed release (Adult Aspirin Regimen) 81 mg PO DAILY COVID + in 03/01/23 [History Last Taken Unknown] Allergy/AdvReac Type Severity Reaction Status Date / Time No Known Allergies Allergy Verified 05/11/23 08:39 Family History Father Heart disease Mother Heart disease Surgical History Hernia Social History adopted: No household members: family number of children: 1 current occupational status: employed current occupation: [employer] current occupational exposures/hazards: No pets and animals: Yes pets and animals: dog(s) history of recent travel: No sexually active: Yes Smoking Status: Never smoker alcohol intake: current alcohol intake frequency: holidays/special occasions only substance use type: does not use caffeine: Yes Type: coffee Number of servings: 1 what type of physical activity do you participate in: aerobics and weight training frequency: 5-6 times per week seatbelt use: always do you feel safe at home: Yes additional social history: - [facility] History 3 Elective abortions Hx Para 1 Spontaneous abortions 1 Hx # Term Pregnancies 1 Ectopic pregnancies Hx # Pregnancies Multiple births # of living children 1 Past Pregnancies Del. Date Name GA/Weeks Outcome Route Bth Weight Infant Gen Labor Lgth Anesthesia Del Locatn Provider FOB 12/14/20 Malachi 39 live - full term 8lbs 4oz Male [facility] Tiffany 08/10/22 spontaneous Delivery Date: 12/14/20 Last Updated by: Della Lawton admitted in active labor and had spontaneous vaginal delivery Visit Details Expected Delivery Route/Plan Labor Preferences- CB/BF classes: [] labor support person: JANNETTE labor intervention preferences: [] pain management options preferred: epidural cut cord/dad catch: [] : yes PP control planned: [] discussed possible routes of delivery and associated risks: [] special requests: [] Plans Covid status: discussed Flu vaccine: discussed Tdap vaccine: Rhogam: na LARC form signed: completed. Problem list reviewed and updated with the most current plan of care details and appropriate orders placed. Relevant counseling for the gestational age provided. Continue routine care and follow up unless otherwise noted in visit notes/problem list details OB Flowsheet Initial Weight: Not Recorded Date -?-?-?-?-?-?-?-?-?-?-?-?- EGA Weight BP Urine Prot -?-?-?-?-?-?-?-?-?-?-?-?- Glucose FHR FuHt Pres Dilation -?-?-?-?-?-?-?-?-?-?-?-?- Effaced St Visit Note 10/11/22 -?-?-?-?-?-?-?-?-?-?-?-?- 8w 6d 127 lb 2 oz 130/82 -?-?-?-?-?-?-?-?-?-?-?-?- 160 -?-?-?-?-?-?-?-?-?-?-?-?- SM- CRL 1.9 cm c ons with lmp 11/12/22 -?-?-?-?-?-?-?-?-?-?-?-?- 13w 3d 126 lb 8 oz 110/74 Nega tive -?-?-?-?-?-?-?-?-?-?-?-?- Negative 148 -?-?-?--?-?-?-?-?-?-?-?-?- LC- no vb/crampi ng. discussed and declines afp.normal ob labs. 12/15/22 -?-?-?-?-?-?-?-?-?-?-?-?- 18w 1d 129 lb 2 oz 121/81 Nega tive -?-?-?-?-?-?-?-?-?-?-?-?- Negative 150 -?-?-?-?-?-?-?-?-?-?-?-?- JV- no lof, vagi nal bleeding, or cramping. wants huseyin for trip to . anatomy scan scheduled for 12/2301/14/23 -?-?-?-?-?-?-?-?-?-?-?-?- 22w 3d 132 lb 8 oz 102/64 Nega tive -?-?-?-?-?-?-?-?-?-?-?-?- Negative 144 -?-?-?-?-?-?-?-?-?-?-?-?- JV- normal anato my scan. no complaints today. gct next visit. 02/11/23 -?-?-?-?-?-?-?-?-?-?-?-?- 26w 3d 139 lb 6 oz 118/72 Nega tive -?-?-?-?-?-?-?-?-?-?--?-?- Negative 150 26 -?-?-?-?-?-?-?-?-?-?-?-?- SM- no vb lof go od fm no regular ctx cbc gct today 03/08/23 -?-?-?-?-?-?-?-?-?-?-?-?- 30w 0d 140 lb 2 oz 112/65 Nega tive -?-?-?-?-?-?-?-?-?-?-?-?- Negative 141 30 -?-?-?-?-?-?-?-?-?-?-?-?- JV- no lof, vagi nal bleeding, or dec fm. tdap today. larc signed. 03/21/23 -?-?-?-?-?-?-?-?-?-?-?-?- 31w 6d 141 lb 12.8 oz 111/64 N egative -?-?-?-?-?-?-?-?-?-?-?-?- Negative 140 31 -?-?-?-?-?-?-?-?-?-?-?-?- LC- no lof/vb/ct x. good fm. growth at 70% 04/06/23 -?-?-?-?-?-?-?-?-?-?-?-?- 34w 1d 144 lb 92/70 Negative -?-?-?-?-?-?-?-?-?-?-?-?- Negative 140 31 -?-?-?-?-?-?-?-?-?-?-?-?- JV- no lof, vagi nal bleeding, or dec fm. growth scan was normal despite low FH. 04/20/23 -?-?-?--?-?-?-?-?-?-?-?-?- 36w 1d 144 lb 4 oz 110/72 Nega tive -?-?-?-?-?-?-?-?-?-?-?-?- Negative 140 35 -?-?-?-?-?-?-?-?-?-?-?-?- LC- no lof/vb/ct x. good fm. no concerns today. growth scan pending. 04/26/23 -?-?-?-?-?-?-?-?-?-?-?-?- 37w 0d 146 lb 4 oz 108/68 Nega tive -?-?-?-?-?-?-?-?-?-?-?-?- Negative 140 34 Cephalic -?-?-?-?-?-?-?-?-?-?-?-?- KW-no lof/vb/ re gular contractions. good fm. KW-no lof/vb/ regular contra ctions. good fm. no concerns today. Growth scan kami gameznatalie. 66%. MAC by DONIS- 12. 05/04/23 -?-?-?-?-?-?-?-?-?-?-?-?- 38w 1d 146 lb 6 oz 134/81 Nega tive -?-?-?-?-?-?-?-?-?-?-?-?- Negative 155 37 Cephalic 1 .5 -?-?-?-?-?-?-?-?-?-?-?-?- 40 -2 JV- no lof , vaginal bleeding, or dec fm. labor precautions discussed. 05/11/23 -?-?-?-?-?-?-?-?-?-?-?-?- 39w 1d 145 lb 4 oz 127/88 Nega tive -?-?-?-?-?-?-?-?-?-?-?-?- Negative 150 37 Cephalic 2 .5 -?-?-?-?-?-?-?-?-?-?-?-?- 50 -2 LC- no lof /vb/ctx. good fm. NST FHR Rate Baby A Baseline: 140 Variability:: Moderate Accelerations:: 15 x 15 Decelerations:: Late (isolated) NST Reactive:: Yes FHR Category:: Category II Uterine Activity:: q3-5 ROS Constitutional Constitutional: Reports systems reviewed and no addt'l complaints, except as documented ENT HEENT: Reports systems reviewed and no addt'l complaints, except as documented Cardiovascular Cardiovascular: Reports systems reviewed and no addt'l complaints, except as documented Respiratory/Chest Respiratory/Chest: Reports systems reviewed and no addt'l complaints, except as documented Gastrointestinal Gastrointestinal: Reports systems reviewed and no addt'l complaints, except as documented and nausea; Denies abdominal pain Genitourinary Genitourinary: Reports systems reviewed and no addt'l complaints, except as documented, contractions Details: present and frequency (regular ) and movement Details: present Musculoskeletal Musculoskeletal: Reports systems reviewed and no addt'l complaints, except as documented Integumentary Integumentary: Reports as per HPI Neurologic Neurologic: Reports systems reviewed and no addt'l complaints, except as documented Endocrine Endocrinology: Reports systems reviewed and no addt'l complaints, except as documented Vital Signs Vital Signs Vital Signs: 05/13/23 09:06 05/13/23 08:53 05/13/23 08:53 Temperature Temperature Source Temporal Pulse Rate 113 H Blood Pressure 127/80 H BP Systolic 127 BP Diastolic 80 05/13/23 09:06 Temperature 98.5 F Temperature Source Pulse Rate Blood Pressure BP Systolic BP Diastolic Physical Exam Const alert, oriented x3 and healthy appearing Constitutional Narrative: uncomfortable with contractions HEENT normocephalic and moist oral mucous membranes Head and Scalp: atraumatic Neck full ROM, no lymphadenopathy, supple and thyroid normal General: trachea midline Thyroid: thyroid normal Lymph Lymphatic: no lymphadenopathy noted Chest inspection of chest normal Resp normal respiratory effort Cardio regular rate GI normal to inspection, nondistended, normoactive bowel sounds, soft to palpation and non-tender Inspection: gravid external exam normal Bimanual Exam - Vag & Uterus: uterus non-tender Manual OB Exam: estimated gestational size appropriate, presentation cephalic, dilated, effaced and station Extremity normal to inspection General Extremity: Negative for edema Skin no rashes or lesions noted Neuro deep tendon reflexes 2+ bilaterally Motor Exam: strength 5/5 throughout and clonus absent Psych mental status grossly normal Labs Labs Labs: Blood Type O POSITIVE Antibody Screen NEGATIVE Hct 29.2 % (37-47) L Hgb 9.8 g/dL (12.0-15.0) L Obstetrics Ultrasound Syphilis Total Ab Non-reactive Rubella IgG Antibody Reactive (Nonreactive) Hep Bs Antigen Non-Reactive (Nonreactive) Hepatitis C Antibody Non-Reactive (Nonreactive) Chlamydia DNA (JONNA) Negative (Negative) N.gonorrhoeae DNA (JONNA) Negative (Negative) HIV 1&2 Antibody Non-Reactive (Nonreactive) Glucose 1 Hr 50 gm 106 mg/dL (70-140) Group B Strep DNA Negative (Negative) Rhogam given: No Assessment & Plan (1) COVID-19 affecting in third trimester: COMMENT: 70.5 % growth. MAC 14 at 31.6 weeks . 36 weeks: 65% growth. normal fluid. (2) Anemia affecting : QUALIFIERS: Trimester: third trimester Qualified Code(s): O99.013 - Anemia complicating , third trimester COMMENT: Started iron daily. Plan repeat CBC in 4 weeks. (3) Supervision of high risk , antepartum: COMMENT: PRR THEA 05/17/23 girl Amaya Ly CJ (4) : QUALIFIERS: Weeks of gestation: 39 weeks Qualified Code(s): Z3A.39 - 39 weeks gestation of COMMENT: GBS negative. nl anatomy, desires nipt and nl carrier screen last . (5) Colitis: COMMENT: Ulcerative colitis. Dx: 07/2016 patient self treats. Flair in 1st trimester. Not on meds outside of . b12 and iron levels ordered (6) Active labor at term: PLAN: Plan Patient presents IAL, plan expectant management for , pitocin/AROM PRN if needed. Pain management: plans epidural. GBS neg. Management of any complications: none I have reviewed the [facility] and made any clinically relevant updates.
[2023-05-13] MEDS: LACTATED RINGERS 500 ML 999 ML IV (09:40)
[2023-05-13] MEDS: Lactated Ringers 1,000 ML 50 ML IV (09:40)
[2023-05-13 10:03] LABS: Absolute Lymphocyte Count 1.71 X10^3/uL (0.83-4.51); Absolute Neutrophil Count 6.3 X10^3/uL (2.0-7.7); Basophil# 0.02 X10^3/uL; Basophil% 0.2 % (0-1); Eosinophil# 0.02 X10^3/uL; Eosinophils% 0.2 % (0-5); Hematocrit 31.9 % (37-47); Lymphocyte # 1.71 X10^3/ul (0.83-4.51); Lymphocyte % 19.6 % (19-41); Mean Corp Hgb Conc 31.3 g/dL (32-36); Mean Corpuscular Hgb 26.8 pg (27.0-32.0); Mean Corpuscular Volume 85.5 fL (81-99); Mean Platelet Vol. 10.6 fl (6.2-12.0); Monocyte# 0.64 X10^3/uL; Monocyte% 7.3 % (0-10); NRBC Flagged by Analyzer 0 % (0-5); Neutrophil # 6.34 X10^3/uL (2.7-7.7); Neutrophil % 72.6 % (47-70); Platelet Count 257 K/mm3 (150-450); RBC Distribution Width CV 13.3 % (11.6-14.6); Red Blood Count 3.73 M/mm3 (4.2-5.4); White Blood Count 8.7 K/mm3 (4.4-11.0)
[2023-05-13 10:28] LABS: Syphilis Antibodies Non-reactive
[2023-05-13] MEDS: fentaNYL-bupivacaine (epidural) 100 ML BAG EPIDURAL (10:54)
[2023-05-13] MEDS: Lactated Ringers 1,000 ML 200 ML IV (12:08)
[2023-05-13] MEDS: Oxytocin 15 Units/NS 250ml 15 UNITS/250 ML IV.SOLN 83 UNITS IV (14:47)
[2023-05-13] MEDS: Oxytocin 10 UNITS/ML Vial IM (14:47)
--- NOTE | 2023-05-13 14:57 | EX.PCM.OBRPT ---
Assessment & Plan (1) Active labor at term: (2) Supervision of high risk , antepartum: COMMENT: PRR THEA 05/17/23 girl Amaya Ly CJ (3) : QUALIFIERS: Weeks of gestation: 39 weeks Qualified Code(s): Z3A.39 - 39 weeks gestation of COMMENT: GBS negative. nl anatomy, desires nipt and nl carrier screen last . (4) Anemia affecting : QUALIFIERS: Trimester: third trimester Qualified Code(s): O99.013 - Anemia complicating , third trimester COMMENT: Started iron daily. Plan repeat CBC in 4 weeks. (5) COVID-19 affecting in third trimester: COMMENT: 70.5 % growth. MAC 14 at 31.6 weeks . 36 weeks: 65% growth. normal fluid. (6) Colitis: COMMENT: Ulcerative colitis. Dx: 07/2016 patient self treats. Flair in 1st trimester. Not on meds outside of . b12 and iron levels ordered (7) Vaginal delivery: COMMENT: SM IAL girl Citlali 39 Maternal Data Information THEA Calculator Estimated Delivery Date Method Current WG Current Estimate 05/17/23 LMP (Certain) 39w 3d Vaginal Delivery Operative Information Date of Procedure: 05/13/23 Pre-Operative Diagnosis: see a/p diagnoses Post-Operative Diagnosis: same Surgery / Procedure Performed: Spontaneous Vaginal Delivery Type of Anesthesia: Epidural Special Medications: none Estimated Blood Loss: 100 Fluids Replaced: crystalloid Findings Description of Procedure: Patient began pushing and delivered the head in the SELIN presentation. The head was delivered atraumatically. The anterior and posterior shoulders delivered without complication followed by the rest of the infant and the infant was placed on the maternal abdomen. Delayed cord clamping was employed for approximately 60 seconds. Cord was clamped and cut and gentle traction was applied to the cord and the placenta delivered spontaneously immediately following it was noted to be intact with three-vessel cord. The perineum and vagina were inspected and noted to have a second degree perineal laceration which was repaired in the usual fashion with 3-0 vicryl rapide. . EBL was 100. Patient and infant tolerated delivery well. Amniotic Fluid Description: Clear Placental Delivery Description: Spontaneous Placenta Disposition: [facility] Cord Vessel Description: 3 Vessels Cord Entanglement: None Delayed Cord Clamping: Yes Post Vaginal Delivery Medications Given After Delivery: IV Pitocin Episiotomy Description: None Complication Complications: None Procedures Urinary/Genital [id number]: [id number] Vaginal Delivery [facility]
--- NOTE | 2023-05-13 14:59 | DCINST_ITS ---
Discharge Instructions Diet Discharge Diet: No restrictions Activity Discharge Activity: Return to Normal Activity, May Not Drive (while taking narcotic pain medications.) and May Shower May resume sexual activity in: 4-6 weeks Dressing / Incision Call your doctor if your incision/area has: Continuous Slow Oozing, Sudden Increased Bleeding, Increased Pain/ Swelling, Increased Redness and Foul Smelling Discharge Follow Up Care Please Follow Up With: Yoana Dave MD When: Call [phone] to make an appointment with your doctor in 6 weeks. If you had elevated blood pressure or 4th degree laceration, you will need to be seen in 2 weeks. Test Results: Test results from this visit will be discussed in further detail at your follow- up appointment, if applicable. Discharge Plan Admission Admit Date/Time: 05/13/23 09:25 Attending Provider: Yoana Dave Primary Care Provider: Care Physician,Valerie Primary Discharge Orders/Prescriptions Prescriptions: No Action PNV-DHA 27 mg iron-1 mg -300 mg capsule 1 cap PO DAILY prochlorperazine maleate [Compazine] 10 mg tablet 10 mg PO Q8H PRN (Reason: nausea and vomiting) Qty: 90 3RF ondansetron HCl 4 mg tablet 4 mg PO ONCE Qty: 30 3RF ferrous sulfate [iron] 325 mg (65 mg iron) tablet 325 mg PO DAILY aspirin [Adult Aspirin Regimen] 81 mg tablet,delayed release (DR/EC) 81 mg PO DAILY Referrals / Follow Up: Care Physician,No Primary [Primary Care Provider] -
[2023-05-13] MEDS: 0.9% Saline Lock 10 ML Syringe IV (17:07)
[2023-05-13] MEDS: Benzocaine/Lanolin/Aloe Vera 1 SPRAY EACH TOPICAL (18:42)
[2023-05-13] MEDS: Acetaminophen 500 MG Tablet 1000 MG PO (18:42)
[2023-05-14 03:06] VITALS: BP 103/71; PULSE 92
[2023-05-14 03:13] VITALS: BP 103/71; PULSE 91; RESP 16; TEMP 36.9; O2SAT 97
[2023-05-14] MEDS: Acetaminophen 500 MG Tablet 1000 MG PO ×2 (03:13→09:42)
[2023-05-14 07:58] VITALS: BP 102/67; PULSE 76; RESP 16; TEMP 36.6
[2023-05-14] MEDS: Senna/Docusate Sodium 1 Tablet PO (09:41)
--- NOTE | 2023-05-14 10:40 | PCM.PN.OB ---
Subjective Subjective Patient doing well without complaints. Tolerating PO. Ambulating and voiding without difficulty. feeding well. Denies chest pain, shortness of breath, calf pain/swelling, fevers, chills, lightheadedness. Objective Data Objective Data Vital Signs: Vital Signs Temp Pulse Resp BP Pulse Ox O2 Del Method 97.8 F 76 16 102/67 97 Room Air 05/14/23 07:58 05/14/23 07:58 05/14/23 07:58 05/14/23 07:58 05/14/23 03:13 05/14/23 03:13 Oxygen Delivery Method Room Air Weight: 143 lb 4.807 oz Body Mass Index (BMI) 26.2 Intake & Output: Intake and Output for Last 24 Hours 05/12/23 05/13/23 05/14/23 23:59 23:59 23:59 Intake Total 1629.51 / 1629.51 Output Total 1950 / 1950 700 / 700 Balance -320.49 / -320.49 -700 / -700 Lab / Micro Data 05/13/23 09:30 ROS Constitutional Constitutional: Reports systems reviewed and no addt'l complaints, except as documented Cardiovascular Cardiovascular: Reports systems reviewed and no addt'l complaints, except as documented Respiratory/Chest Respiratory/Chest: Reports systems reviewed and no addt'l complaints, except as documented Gastrointestinal Gastrointestinal: Reports systems reviewed and no addt'l complaints, except as documented Physical Exam Const alert, oriented x3 and no apparent distress HEENT Head and Scalp: atraumatic Resp normal respiratory effort GI soft to palpation and non-tender Bimanual Exam - Vag & Uterus: uterus non-tender Uterus Palpation: uterus fundus firm (below Umbilicus) Assessment & Plan (1) Vaginal delivery: COMMENT: SM IAL girl Citlali 39 PLAN: Plan s/p PPD # 1 1. routine post delivery care 2. breast feeding- support given 3. rh positive 4. rubella immune
[2023-05-14 12:22] VITALS: BP 110/68; PULSE 88
== END 2023-05-14 16:08 | disposition home or self-care (01) | DRG 807 ==
PROVIDERS: Admitting Provider Obstetrics & Gynecology; Referring Provider Obstetrics & Gynecology; Visit Provider Obstetrics & Gynecology
DX: O99.02 Anemia complicating childbirth (principal); Z37.0 Single live birth; D64.9 Anemia, unspecified; O70.1 Second degree perineal laceration during delivery; Z79.82 Long term (current) use of aspirin; Z3A.39 39 weeks gestation of pregnancy
CPT/HCPCS: 59025; 59050; 85025; 86780; 86850; 86900; 86901; 99221; J7120; A4216; G0378